=== PATIENT | female | born 1950 | race Caucasian/White ===

== ENCOUNTER 2019-11-24 10:32 | Outpatient (CLI) | payer MEDICARE, SELFPAY ==
--- NOTE | ~2019-11-24 | CT_ITS ---
EXAMINATION: CT lung screening DATE: 11/24/2019 10:58 INDICATION: Personal history of nicotine dependence, prior smoker with 40 to pack year history TECHNIQUE: Computed tomography (CT) of the chest was performed without intravenous contrast. The dose -length product (DLP) was 384.45 mGy-cm. 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 COMPARISON: 09/19/2018 FINDINGS: There are stable pulmonary nodules which measure up to 4 mm in the left lower lobe. No new or suspicious pulmonary nodule is identified. The lungs are free of acute opacities. There is no pleu ral effusion or pneumothorax. Mild emphysema is noted. No pathologically enlarged thoracic lymph node s are identified. The heart size is normal. There is a stable right thyroid nodule which has been lizeth luated with interval ultrasound. Calcified coronary artery atherosclerosis is noted. There is mild th oracic spondylosis. IMPRESSION: 1. Lung-RADS category 2: Benign appearance or behavior. Continue annual screening with noncontrast lo w-dose chest CT in 12 months. Reviewed, dictated and finalized at location B. IMPRESSION: 1. Lung-RADS category 2: Benign appearance or behavior. Continue annual screeni ng with noncontrast low-dose chest CT in 12 months.
== END 2019-11-24 10:33 | disposition home or self-care (01) ==
PROVIDERS: PCP Family Medicine; Visit Provider Nurse Practitioner Family
DX: Z12.2 Encounter for screening for malignant neoplasm of respiratory organs (principal); Z87.891 Personal history of nicotine dependence
CPT/HCPCS: G0297

== ENCOUNTER 2020-03-08 15:41 | Outpatient (CLI) | payer MEDICARE, OTHER, SELFPAY ==
--- NOTE | ~2020-03-08 | US_ITS ---
US venous doppler [facility] DATE: 03/08/2020 16:20 INDICATION: Left leg pain TECHNIQUE: Real-time and color flow imaging and Doppler analysis of the veins of the left lower extre mity COMPARISON: 06/22/2017 venous duplex examination of both lower extremities FINDINGS: There is spontaneous and phasic flow and normal augmentation and color flow signal and norm al compression of the deep veins of the left leg. IMPRESSION: No evidence of deep venous thrombosis of left leg Reviewed, dictated and finalized at Location [facility]. Reviewed, dictated and finalized at location A. ITAL NURSING ASSISTANT
--- NOTE | ~2020-03-08 | CT_ITS ---
EXAMINATION: CTA chest PE protocol DATE: 03/08/2020 16:45 INDICATION: Tachycardia. History of pulmonary embolism. TECHNIQUE: Computed tomography angiography (CTA) of the chest was performed with 100 mL Omnipaque-350 intravenous contrast timed to evaluate the pulmonary arteries. Coronal maximum intensity projection 3D-reconstructions were created by the technologist. Automated exposure control and iterative reconst ruction technique were employed. Exam dose: 857.20 mGy-cm total exam DLP. COMPARISON: 11/24/2019, 09/19/2018 CT lung screening examinations FINDINGS: Stable right thyroid mass since 09/19/2018. There is aortic, great vessel and coronary artery atherosclerotic calcification. No thoracic aortic a neurysm or dissection. No hilar or mediastinal mass lesion or lymphadenopathy. Normal heart size. No pericardial or pleural effusion. Approximately 3.4 mm left lower lobe pulmonary nodule (series 4 image 74), stable or diminished in si ze since 09/19/2018. No suspicious mass or new or enlarging pulmonary mass lesion is noted. No pulmonary infiltrate or consolidation. Diffuse osteopenia. IMPRESSION: No significant change since 09/19/2018 No evidence of pulmonary embolism Reviewed, dictated and finalized at [facility]. Reviewed, dictated and finalized at location A. 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
[2020-03-08 16:34] LABS: Estimated Glomerular Filt Rate > 60
== END 2020-03-08 15:42 | disposition home or self-care (01) ==
LOC: ANHIMG 15:49
PROVIDERS: PCP Family Medicine; Visit Provider Nurse Practitioner Family
DX: M79.662 Pain in left lower leg (principal); I26.99 Other pulmonary embolism without acute cor pulmonale; R00.0 Tachycardia, unspecified; M85.88 Other specified disorders of bone density and structure, other site
CPT/HCPCS: 71275; 93971; Q9967

== ENCOUNTER 2020-04-19 15:07 | Outpatient (CLI) | payer MEDICARE, OTHER, SELFPAY ==
--- NOTE | ~2020-04-19 | XR_ITS ---
XR knee LT 3V 04/19/2020 16:31 Indication: Left knee pain. No acute injury. Procedure: 3 views left knee Comparison: No prior studies for comparison. Findings: There is moderate tricompartment osteoarthritis of the left knee. No acute fracture or trau matic malalignment. No significant joint effusion. There are vascular calcifications. Impression: 1: Moderate osteoarthritis of the left knee. Reviewed, dictated and finalized at location A. 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
== END 2020-04-19 15:08 | disposition home or self-care (01) ==
PROVIDERS: PCP Family Medicine; Visit Provider Nurse Practitioner Family
DX: M17.12 Unilateral primary osteoarthritis, left knee (principal)
CPT/HCPCS: 73562

== ENCOUNTER 2020-06-02 11:31 | Outpatient (CLI) | payer MEDICARE, SELFPAY ==
--- NOTE | ~2020-06-02 | MM_ITS ---
EXAMINATION: MM screening [place] [facility] w shena HISTORY: Screening mammogram, family history of breast cancer in her sister. TECHNIQUE: Craniocaudal and mediolateral oblique 3-D tomosynthesis images were obtained and synthetic 2-D images were generated. CAD analysis was submitted and interpreted. COMPARISON: 10/12/2017, 05/06/2008 BREAST PARENCHYMAL COMPOSITION: The breasts are almost entirely fatty. FINDINGS: Again noted is a stable subareolar mass in the right breast, considered benign. There is no evidence of suspicious mass, calcification, or architectural distortion to suggest malignancy in eit her breast. There has been no suspicious interval change. IMPRESSION: 1. No mammographic evidence of malignancy. 2. Recommend routine screening mammography in one year. BI-RADS Category 2: Benign finding(s). Reviewed, dictated and finalized at location A. ER STAKER
== END 2020-06-02 11:32 | disposition home or self-care (01) ==
LOC: ANHIMG 11:33
PROVIDERS: PCP Family Medicine; Visit Provider Family Medicine
DX: Z12.31 Encounter for screening mammogram for malignant neoplasm of breast (principal)
CPT/HCPCS: 77063; 77067

== ENCOUNTER 2020-12-03 09:15 | Outpatient (RCR) | payer MEDICARE, OTHER, SELFPAY ==
[2020-09-09 15:09] VITALS: BMI 40.3
[2020-09-09 16:02] VITALS: BMI 40.3
== END 2020-12-06 11:56 | disposition home or self-care (01) ==
LOC: ANHDMC 09:15
PROVIDERS: PCP Family Medicine; Visit Provider Internal Medicine Endocrinology, Diabetes & Metabolism
DX: E11.65 Type 2 diabetes mellitus with hyperglycemia (principal); Z71.3 Dietary counseling and surveillance; Z71.89 Other specified counseling
CPT/HCPCS: 97802; G0108

== ENCOUNTER 2021-02-02 10:15 | Outpatient (RCR) | payer MEDICARE, OTHER, SELFPAY | END 2021-02-02 13:10 | disposition home or self-care (01) | LOC: ANHDMC 10:15 | PROVIDERS: PCP Family Medicine; Visit Provider Internal Medicine Endocrinology, Diabetes & Metabolism | DX: E11.65 Type 2 diabetes mellitus with hyperglycemia (principal); Z71.89 Other specified counseling | CPT/HCPCS: G0108 ==